=== PATIENT | male | born 1980 | race Caucasian/White ===

== ENCOUNTER 2017-05-19 13:33 | Emergency (ER) | payer BC ==
[2017-05-19 13:57] VITALS: BP 120/64
--- NOTE | 2017-05-19 14:16 | UC ---
Respiratory Complaint HPI - HPI Summary HPI Summary: 36M presents with cough for 3 weeks. He denies any SOB. He admits to some wheezing that started today. He admits to sinus congestion. He denies any fever, ear pain, or abdominal pain. He denies any n/v/d. He does not smoke and he does not have any medical problems. He took some cough medication without relief. the cough is mostly dry but occasionally is productive. His daughter is sick with similar symptoms. - History of Current Complaint Chief Complaint: UCRespiratory Stated Complaint: COUGH, RUNNING NOSE Time Seen by Provider: 05/19/17 14:06 - Allergies/Home Medications Allergies/Adverse Reactions: Allergies Allergy/AdvReac Type Severity Reaction Status Date / Time No Known Allergies Allergy Verified 05/19/17 13:57 PMH/Surg Hx/FS Hx/Imm Hx Endocrine History: Other Other Endocrine History: no DM Respiratory History: Other Other Respiratory History: no asthma - Surgical History Surgical History: None - Family History Known Family History: Negative: Respiratory Disease - Social History Alcohol Use: Occasionally Substance Use Type: None Smoking Status (MU): Never Smoked Tobacco Have You Smoked in the Last Year: No - Immunization History Most Recent Influenza Vaccination: unknown Review of Systems Constitutional: Negative Respiratory: Cough All Other Systems Reviewed And Are Negative: Yes Physical Exam Triage Information Reviewed: Yes Appearance: Well-Appearing Vital Signs: Initial Vital Signs Temp 97.8 F 05/19/17 13:53 Pulse 78 05/19/17 13:53 Resp 16 05/19/17 13:53 BP 120/64 05/19/17 13:53 Pulse Ox 100 05/19/17 13:53 Vital Signs Reviewed: Yes Eyes: Positive: Conjunctiva Clear ENT: Positive: Normal ENT inspection, Pharynx normal, Nasal drainage, TMs normal Neck: Positive: Supple, Nontender, No Lymphadenopathy Respiratory: Positive: Lungs clear, Normal breath sounds, Other: - neg egophony Cardiovascular: Positive: RRR Abdomen Description: Positive: Nontender, Soft Bowel Sounds: Positive: Present Musculoskeletal Exam: Normal Neurological Exam: Normal Psychological Exam: Normal Skin Exam: Normal UC Diagnostic Evaluation - Laboratory O2 Sat by Pulse Oximetry: 100 Respiratory Course/Dx - Course Course Of Treatment: 36M presents with cough for 3 weeks. He denies any SOB. He admits to some wheezing that started today. He admits to sinus congestion. He denies any fever, ear pain, or abdominal pain. He denies any n/v/d. He does not smoke and he does not have any medical problems. He took some cough medication without relief. the cough is mostly dry but occasionally is productive. - Differential Dx/Diagnosis Differential Diagnosis/HQI/PQRI: Bronchitis, Influenza, Lower Resp Infection Provider Diagnoses: bronchitis Discharge - Discharge Plan Condition: Good Disposition: HOME Prescriptions: Albuterol HFA INHALER* [Ventolin HFA Inhaler*] 1 puff INH Q6H PRN #1 mdi PRN Reason: Cough Benzonatate CAP* [Tessalon 100 MG CAP*] 100 mg PO TID PRN #15 cap PRN Reason: Cough Patient Education Materials: Acute Bronchitis (ED) Referrals: Hector Maddox MD [Primary Care Provider] - Additional Instructions: Use Tessalon three times a day for cough Use inhaler one puff every 4-6 hours for cough as needed Use humidifier or place warm bowls of water around the room for cough Take Tylenol and ibuprofen for pain/fever every 6 hours Return to ED if develop any new or worsening symptoms
== END 2017-05-19 14:20 | disposition home or self-care (01) ==
LOC: UCEAST 13:33
DX: J40 Bronchitis, not specified as acute or chronic (principal)
CPT/HCPCS: 99212; G0463

== ENCOUNTER 2017-05-24 12:28 | Emergency (ER) | payer BC ==
[2017-05-24 12:35] VITALS: BP 131/68
--- NOTE | 2017-05-24 14:22 | UC ---
Throat Pain/Nasal Jovani HPI - HPI Summary HPI Summary: NASAL CONGESTION, COUGH, CHEST CONGESTION FOR 3 WEEKS. NO FEVER. NO WHEEZING. NO SOB. - History of Current Complaint Chief Complaint: UCRespiratory Stated Complaint: URI Time Seen by Provider: 05/24/17 13:11 Hx Obtained From: Patient Onset/Duration: Gradual Onset, Lasting Weeks Severity: Mild Pain Intensity: 0 Pain Scale Used: 0-10 Numeric Cough: Nonproductive Associated Signs & Symptoms: Positive: Hoarseness, Sinus Discomfort, Nasal Discharge - Epiglottits Risk Factors Epiglottis Risk Factors: Negative - Allergies/Home Medications Allergies/Adverse Reactions: Allergies Allergy/AdvReac Type Severity Reaction Status Date / Time No Known Allergies Allergy Verified 05/24/17 12:34 PMH/Surg Hx/FS Hx/Imm Hx Previously Healthy: Yes - Surgical History Surgical History: None - Family History Known Family History: Negative: Respiratory Disease - Social History Occupation: Employed Full-time Lives: With Family Alcohol Use: Occasionally Substance Use Type: None Smoking Status (MU): Never Smoked Tobacco Have You Smoked in the Last Year: No - Immunization History Most Recent Influenza Vaccination: unknown Review of Systems Constitutional: Negative Skin: Negative Eyes: Negative ENT: Nasal Discharge, Sinus Congestion, Sinus Pain/Tenderness Respiratory: Cough Cardiovascular: Negative Gastrointestinal: Negative Genitourinary: Negative Motor: Negative Neurovascular: Negative Musculoskeletal: Negative Neurological: Negative Psychological: Negative Is Patient Immunocompromised?: No All Other Systems Reviewed And Are Negative: Yes Physical Exam Triage Information Reviewed: Yes Appearance: Well-Appearing, No Pain Distress, Well-Nourished Vital Signs: Initial Vital Signs Temp 97.4 F 05/24/17 12:30 Pulse 90 05/24/17 12:30 Resp 16 05/24/17 12:30 BP 131/68 05/24/17 12:30 Pulse Ox 98 05/24/17 12:30 Vital Signs Reviewed: Yes Eye Exam: Normal ENT Exam: Normal ENT: Positive: Nasal congestion, Nasal drainage, TM bulging, TM dull Dental Exam: Normal Neck exam: Normal Neck: Positive: Supple, Nontender, No Lymphadenopathy Respiratory Exam: Other - COUGH Respiratory: Positive: Chest non-tender, Lungs clear, Normal breath sounds, No respiratory distress, No accessory muscle use Cardiovascular Exam: Normal Cardiovascular: Positive: RRR, No Murmur, Pulses Normal, Brisk Capillary Refill Abdominal Exam: Normal Abdomen Description: Positive: Nontender, No Organomegaly, Soft Musculoskeletal Exam: Normal Musculoskeletal: Positive: Strength Intact, ROM Intact Neurological Exam: Normal Psychological Exam: Normal Skin Exam: Normal Throat Pain/Nasal Course/Dx - Differential Dx/Diagnosis Differential Diagnosis/HQI/PQRI: Pharyngitis, Sinusitis, Tonsillitis, URI Provider Diagnoses: SINUSITIS; BRONCHITIS Discharge - Discharge Plan Condition: Stable Disposition: HOME Prescriptions: DOXYcycline CAP(*) [DOXYcycline 100MG CAP(*)] 100 mg PO BID #20 cap Patient Education Materials: Sinusitis (ED), Acute Bronchitis (ED) Referrals: Hector Maddox MD [Primary Care Provider] -
== END 2017-05-24 13:35 | disposition home or self-care (01) ==
LOC: UCEAST 12:28
DX: J32.9 Chronic sinusitis, unspecified (principal); J40 Bronchitis, not specified as acute or chronic
CPT/HCPCS: 99212; G0463

== ENCOUNTER 2017-07-04 20:37 | Emergency (ER) | payer BC ==
[2017-07-04 20:45] VITALS: BP 142/74
--- NOTE | 2017-07-04 21:12 | RAD ---
INDICATION: Wheezing. Cough. COMPARISON: None TECHNIQUE: PA and lateral dual-energy views were obtained. FINDINGS: Bones/Soft Tissues: There are no acute bony findings. Cardiomediastinal: The cardiomediastinal silhouette is normal. Lungs: There are no infiltrates. Pleura: There are no pleural effusions. Other: None IMPRESSION: NEGATIVE EXAMINATION.
[2017-07-04] MEDS ORDERED: Amoxicillin/Clavulanate TAB* 875 MG PO ONE (21:19)
[2017-07-04] MEDS ORDERED: Azithromycin TAB* 250 MG PO ONE (21:19)
--- NOTE | 2017-07-04 21:26 | UC ---
Reji Nicole Tecjoon, scribed for Hector Brito MD on 07/04/17 at 2057 . Respiratory Complaint HPI - HPI Summary HPI Summary: This patient is a 36 year old male [place] [facility] a chief complaint of wheezing and sinus congestion since 2 months ago, worsening in the past 2 weeks. Patient states that he was dx with pneumonia at the time. Symptoms aggravated by nothing. Symptoms alleviated by nothing. The patient treated the sx with doxycycline [employer]. Patient additionally reports nonproductive cough, sinus pressure/pain, ear pressure/pain, nasal discharge with green phlegm. Patient states that he gets fatigued abnormally quickly. - History of Current Complaint Stated Complaint: COLD,COUGH Hx Obtained From: Patient Onset/Duration: Gradual Onset, Lasting Weeks - 8 weeks, Still Present, Worse Since - 2 weeks Severity Currently: Mild Pain Intensity: 0 Pain Scale Used: 0-10 Numeric Character: Cough: Nonproductive Aggravating Factors: Nothing Alleviating Factors: Nothing Associated Signs And Symptoms: Positive: Wheezing, Nasal Congestion. Negative: Fever - Allergies/Home Medications Allergies/Adverse Reactions: Allergies Allergy/AdvReac Type Severity Reaction Status Date / Time No Known Allergies Allergy Verified 07/04/17 20:42 PMH/Surg Hx/FS Hx/Imm Hx Previously Healthy: Yes Endocrine History: Other Other Endocrine History: negative: diabetes Cardiovascular History: Other Other Cardiovascular History: negative: cardiac disease, hypertension Other Respiratory History: negative: COPD Cancer History: Other Other Cancer History: iga nephropathy - Surgical History Surgical History: None - Family History Known Family History: Negative: Respiratory Disease - Social History Lives: Alone Alcohol Use: Occasionally Substance Use Type: None Smoking Status (MU): Never Smoked Tobacco Have You Smoked in the Last Year: No - Immunization History Most Recent Influenza Vaccination: unknown Review of Systems Constitutional: Negative - fever ENT: Ear Ache - pressure, Nasal Discharge - green phlegm, Sinus Congestion, Sinus Pain/Tenderness Respiratory: Cough, Other - wheezing All Other Systems Reviewed And Are Negative: Yes Physical Exam Triage Information Reviewed: Yes Vital Signs: Initial Vital Signs Temp 97.8 F 07/04/17 20:43 Pulse 88 07/04/17 20:43 Resp 17 07/04/17 20:43 BP 142/74 07/04/17 20:43 Pulse Ox 98 07/04/17 20:43 - Additional Comments General: mildly ill-appearing, no pain distress Skin: warm, color reflects adequate perfusion, dry Head: normal Eyes: EOMI, CLARICE ENT: rhinorrhea Neck: supple, nontender Respiratory: Bilateral wheezing with expiration. No respiratory distress. Cardiovascular: RRR Abdomen: soft, nontender Bowel: present Musculoskeletal: normal, strength/ROM intact Neurological: normal, sensory/motor intact, A&O x3 Psychological: affect/mood appropriate Diagnostic Evaluation - Laboratory O2 Sat by Pulse Oximetry: 98 - Radiology Xray Interpretation: No Acute Changes - CXR reveals, per radiologist, IMPRESSION : NEGATIVE HEADLIGHT Radiology Interpretation Completed By: Radiologist Respiratory Course/Dx - Course Course Of Treatment: HAD 10D OF DOXY IN APRIL. TODAY RX DUAL THERAPY; AZITHRO FOR BRONCHITIS TO COVER ANY ATYPICALS AND AUGMENTIN FOR SINUSITIS. RX PREDNISONE ALSO. - Differential Dx/Diagnosis Provider Diagnoses: BRONCHITIS WITH BRONCHOSPASM AND SINUSITIS Discharge - Discharge Plan Condition: Stable Disposition: HOME Prescriptions: Amoxicillin/Clavulanate TAB* [Augmentin TAB 875*] 875 mg PO BID #19 tab Azithromycin TAB* [Zithromax TAB (Z-ILIANA) 250 mg #6 tabs] 250 mg PO DAILY #4 tab predniSONE TAB* [Deltasone TAB*] 40 mg PO DAILY #10 tab Patient Education Materials: Sinusitis (ED), Acute Bronchitis (ED), Bronchospasm (ED) Referrals: Hector Maddox MD [Primary Care Provider] - Additional Instructions: FOLLOW UP WITH YOUR DOCTOR. GET RECHECKED FOR ANY WORSENING OF YOUR CONDITION OR QUESTIONS OR CONCERNS. The documentation as recorded by the Reji baker Tecjoon accurately reflects the service I personally performed and the decisions made by me, Hector Brito MD.
== END 2017-07-04 21:25 | disposition home or self-care (01) ==
LOC: UCEAST 20:37
DX: J40 Bronchitis, not specified as acute or chronic (principal); J98.01 Acute bronchospasm; J32.9 Chronic sinusitis, unspecified
CPT/HCPCS: 71046; 99212; A9270-GY; G0463

== ENCOUNTER 2017-08-09 11:22 | Emergency (ER) | payer BC ==
[2017-08-09 11:38] VITALS: BP 127/77
--- NOTE | 2017-08-09 12:03 | UC ---
Throat Pain/Nasal Jovani HPI - HPI Summary HPI Summary: Patient presents with complaints of sinus pain, pressure and thick green nasal discharge. He states he has sinus headache behind his eyes, he has been taking Tylenol cold and sinus with no relief. She states his daughter has been ill with viral illnesses and he feels she is bringing home to him. He denies any double vision, blurred vision, fever, chills, neck, chest or abdomen pain, nausea, vomiting or diarrhea. - History of Current Complaint Chief Complaint: UCRespiratory Stated Complaint: SINUS CONGESTION Time Seen by Provider: 08/09/17 11:43 Hx Obtained From: Patient Onset/Duration: Gradual Onset, Lasting Days Severity: Moderate Pain Intensity: 4 Cough: Nonproductive Associated Signs & Symptoms: Positive: Sinus Discomfort, Nasal Discharge - Epiglottits Risk Factors Epiglottis Risk Factors: Negative - Allergies/Home Medications Allergies/Adverse Reactions: Allergies Allergy/AdvReac Type Severity Reaction Status Date / Time No Known Allergies Allergy Verified 08/09/17 11:38 PMH/Surg Hx/FS Hx/Imm Hx Previously Healthy: No - three respiratory illnesses since 05/09. - Surgical History Surgical History: None - Family History Known Family History: Negative: Respiratory Disease - Social History Occupation: Employed Full-time Lives: With Family Alcohol Use: Occasionally Substance Use Type: None Smoking Status (MU): Never Smoked Tobacco Have You Smoked in the Last Year: No - Immunization History Most Recent Influenza Vaccination: unknown Review of Systems Constitutional: Fatigue Skin: Negative Eyes: Negative ENT: Nasal Discharge, Sinus Congestion, Sinus Pain/Tenderness Respiratory: Negative Cardiovascular: Negative Gastrointestinal: Negative Genitourinary: Negative Motor: Negative Neurovascular: Negative Musculoskeletal: Negative Neurological: Negative Psychological: Negative Is Patient Immunocompromised?: No All Other Systems Reviewed And Are Negative: Yes Physical Exam Triage Information Reviewed: Yes Appearance: Well-Appearing Vital Signs: Initial Vital Signs Temp 98.6 F 08/09/17 11:34 Pulse 70 08/09/17 11:34 Resp 18 08/09/17 11:34 BP 127/77 08/09/17 11:34 Pulse Ox 99 08/09/17 11:34 Vital Signs Reviewed: Yes Eye Exam: Normal ENT: Positive: Pharyngeal erythema, Nasal congestion, Nasal drainage, Sinus tenderness, Uvula midline Neck exam: Normal Respiratory Exam: Normal Skin Exam: Normal Throat Pain/Nasal Course/Dx - Course Course Of Treatment: Patient presents with three respiratory illnesses since . He presents today with clincial signs of sinus infection, and will be treated with Baixin 500 mg by mouth twice daily for 14 days given the fact that this is reoccurant. I also recommend he follow up with ENT due to the frequency of his illness. He had normal vital signs, nontoxic appearace and I feel appropriate for outpatient treatment. He verbalized understanding of and was in agreeement with the discharge plan. - Differential Dx/Diagnosis Differential Diagnosis/HQI/PQRI: Sinusitis Provider Diagnoses: sinusitis Discharge - Discharge Plan Condition: Stable Disposition: HOME Prescriptions: Clarithromycin TAB* [Biaxin 500 MG TAB*] 500 mg PO BID #28 tab Patient Education Materials: Sinusitis (ED) Referrals: William Hobbs MD [Medical Doctor] - Hector Maddox MD [Primary Care Provider] - Additional Instructions: You should follow up with the ENT if you continue to have sinus symptoms.
== END 2017-08-09 12:04 | disposition home or self-care (01) ==
LOC: UCEAST 11:22
DX: J32.9 Chronic sinusitis, unspecified (principal)
CPT/HCPCS: 99212; G0463

== ENCOUNTER 2018-03-21 13:17 | Emergency (ER) | payer BC ==
[2018-03-21 13:35] VITALS: BP 131/73
--- NOTE | 2018-03-21 13:46 | UC ---
Skin Complaint HPI - HPI Summary HPI Summary: 37 year old male presents with 1 week history of prurtic rash to bilateral forearms and legs. 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 Denies fever, chills, difficulty breathing, swelling of lips, tongue, or throat, changes in medications, foods, soaps, detergents, perfumes, or deodorants. - History of Current Complaint Chief Complaint: UCRash Time Seen by Provider: 03/21/18 13:36 Stated Complaint: ITCHY BUMPS ON ARMS Hx Obtained From: Patient Onset/Duration: Gradual Onset, Lasting Weeks - 1 Timing: Constant Pain Intensity: 0 Location: Diffuse - bilateral forearms and legs Character: Pruritus, Redness, Raised Aggravating Factor(s): Nothing Alleviating Factor(s): Nothing - Allergy/Home Medications Allergies/Adverse Reactions: Allergies Allergy/AdvReac Type Severity Reaction Status Date / Time No Known Allergies Allergy Verified 03/21/18 13:35 Review of Systems Constitutional: Negative Skin: Rash - See HPI ENT: Negative Respiratory: Negative Cardiovascular: Negative Is Patient Immunocompromised?: No All Other Systems Reviewed And Are Negative: Yes PMH/Surg Hx/FS Hx/Imm Hx Previously Healthy: Yes - Denies significant PMH - Surgical History Surgical History: None - Family History Family History: Noncontributory - Social History Occupation: Employed Full-time Lives: With Family Alcohol Use: Occasionally Substance Use Type: None Smoking Status (MU): Never Smoked Tobacco Have You Smoked in the Last Year: No - Immunization History Most Recent Influenza Vaccination: unknown Physical Exam Triage Information Reviewed: Yes Appearance: Well-Appearing, No Pain Distress, Well-Nourished Vital Signs: Initial Vital Signs Temp 98.3 F 03/21/18 13:32 Pulse 93 03/21/18 13:32 Resp 18 03/21/18 13:32 BP 131/73 03/21/18 13:32 Pulse Ox 98 03/21/18 13:32 ENT: Positive: Normal ENT inspection Neck: Positive: Supple, Nontender, No Lymphadenopathy Respiratory: Positive: Lungs clear, Normal breath sounds, No respiratory distress Cardiovascular: Positive: RRR, No Murmur Neurological: Positive: Alert Skin: Positive: rashes - multiple discrete pruritic papular lesions to bilateral forearms, upper and lower legs. Few with excoriation and crusting. There is clusters group noted to left forearm. Course/Dx - Course Course Of Treatment: 37 year old male with 1 week history of pruritic rash to bilateral arms and legs with significant exposure to potential environmental irritants. Rash is consistent with a contact dermatitis. Will treat with topical steroid ointment and OTC diphenhydramine. He is to follow up with PCP in 2 weeks if no improvement in symptoms. - Differential Diagnoses - Skin Complaint Differential Diagnoses: Allergic Reaction, Contact Dermatitis, Poison Sparkle, Poison [place] - Diagnoses Provider Diagnoses: contact dermatitis, elevated blood pressure reading Discharge - Sign-Out/Discharge Documenting (check all that apply): Patient Departure All imaging exams completed and their final reports reviewed: No Studies - Discharge Plan Condition: Stable Disposition: HOME Prescriptions: Clobetasol 0.05% OINT* 1 applic TOPICAL BID 14 Days #1 tube Patient Education Materials: Contact Dermatitis (ED) Referrals: Hector Maddox MD [Primary Care Provider] - 2 Weeks (If no improvement in symptoms.) Additional Instructions: Your rash appears to be a contact dermatitis. This may be from poison sparkle or poison oak considering your potential for exposure. Try to avoid scratching as this may cause the rash to spread to other areas. Use clobetasol ointment twice a day to affected areas to help with itching and inflammation. Do not use for more than 2 weeks. You may use over the counter diphenhydramine (Benadryl) according to directions as needed for itching. This may cause drowsiness. Follow up with your primary care provider in 2 weeks if no improvement in symptoms. Sooner if rash continues to spread. Your blood pressure was slightly elevated in the clinic today. I would recommend that you follow up with your primary care provider to have this rechecked. - Billing Disposition and Condition Condition: STABLE Disposition: Home
== END 2018-03-21 14:21 | disposition home or self-care (01) ==
LOC: UCEAST 13:17
DX: L25.9 Unspecified contact dermatitis, unspecified cause (principal); R03.0 Elevated blood-pressure reading, without diagnosis of hypertension
CPT/HCPCS: 99212; G0463

== ENCOUNTER 2018-11-30 07:06 | Emergency (ER) | payer BC ==
[2018-11-30 07:16] VITALS: BP 129/82
--- NOTE | 2018-11-30 07:24 | UC ---
Shoulder Pain HPI - HPI Summary HPI Summary: The patient is a 38-year-old male who was playing kickball last night. He tried to avoid landing on someone and jumped and rolled. He landed awkwardly on his left shoulder. He has left shoulder pain. He denies any prior history of his left shoulder. He is right handed. He has decreased range of motion. Hurts to lay on his left shoulder. - History of Current Complaint Chief Complaint: UCUpperExtremity Stated Complaint: SHOULDER INJURY Time Seen by Provider: 11/30/18 07:19 Hx Obtained From: Patient Onset/Duration: Sudden Onset, Lasting Hours Timing: Constant Severity Initially: Moderate Severity Currently: Moderate Pain Intensity: 5 Pain Scale Used: 0-10 Numeric Character: Aching, Throbbing, Spasmodic Aggravating Factor(s): Movement, Lifting, Internal Rotation, External Rotation, Abduction Alleviating Factor(s): Rest Associated Signs And Symptoms: Negative: Swelling, Redness, Bruising, Fever, Weakness, Numbness/Tingling Related History: Dominant Hand Right Torso: 1 - tender 2 - tender - Allergies/Home Medications Allergies/Adverse Reactions: Allergies Allergy/AdvReac Type Severity Reaction Status Date / Time NSAIDS (Non-Steroidal AdvReac unable to Verified 11/30/18 07:16 Anti-Inflamma have d/t IGA nephropathy Home Medications: Home Medications Acetaminophen [Tylenol] 1,000 mg PO BID PRN 11/30/18 [History Confirmed 11/30/18 ] PMH/Surg Hx/FS Hx/Imm Hx - Additional Past Medical History Additional PMH: IgA nephropathy Previously Healthy: Yes - Surgical History Surgical History: None - Family History Known Family History: Positive: Hypertension Negative: Respiratory Disease Family History: Noncontributory - Social History Alcohol Use: Rare Substance Use Type: None Smoking Status (MU): Never Smoked Tobacco Have You Smoked in the Last Year: No - Immunization History Most Recent Influenza Vaccination: unknown Review of Systems All Other Systems Reviewed And Are Negative: Yes Constitutional: Positive: Negative Skin: Positive: Negative Eyes: Positive: Negative ENT: Positive: Negative Respiratory: Positive: Negative Cardiovascular: Positive: Negative Gastrointestinal: Positive: Negative Genitourinary: Positive: Negative Motor: Positive: Negative Musculoskeletal: Positive: Arthralgia - Left shoulder, Decreased ROM - left shoulder Neurological: Positive: Negative Psychological: Positive: Negative Physical Exam Triage Information Reviewed: Yes Appearance: Well-Appearing, No Pain Distress, Well-Nourished Vital Signs: Initial Vital Signs Temp 97.1 F 11/30/18 07:13 Pulse 74 11/30/18 07:13 Resp 16 11/30/18 07:13 BP 129/82 11/30/18 07:13 Pulse Ox 97 11/30/18 07:13 Vital Signs Reviewed: Yes Eyes: Positive: Conjunctiva Clear ENT: Positive: Hearing grossly normal. Negative: Nasal congestion, Nasal drainage, Muffled voice, Hoarse voice Dental Exam: Normal Neck: Positive: Supple, Nontender, No Lymphadenopathy Respiratory: Positive: Lungs clear, Normal breath sounds, No respiratory distress, No accessory muscle use Cardiovascular: Positive: RRR, No Murmur Musculoskeletal: Positive: ROM Limited @ - left shoulder, Other: - tender left ACjoint and distal clavicle Neurological: Positive: Alert Psychological Exam: Normal Skin Exam: Normal Diagnostics - Radiology No standard instances Radiology Interpretation Completed By: Radiologist Summary of Radiographic Findings: negative Shoulder Course/Dx - Differential Dx/Diagnosis Provider Diagnosis: Separation of left acromioclavicular joint, Strain of left trapezius muscle Discharge - Sign-Out/Discharge Documenting (check all that apply): Patient Departure All imaging exams completed and their final reports reviewed: Yes - Discharge Plan Condition: Stable Disposition: HOME Patient Education Materials: Acromioclavicular Separation (ED), Shoulder Sprain (ED) Referrals: Hector Maddox MD [Primary Care Provider] - 1 Week Additional Instructions: sling as needed ice shoulder at least twice daily your XR was normal I suspect a mild AC separation and sprain If not improving you may need further imaging of shoulder so be sure to follow up with you MD - Billing Disposition and Condition Condition: STABLE Disposition: Home
== END 2018-11-30 08:10 | disposition home or self-care (01) ==
LOC: UCEAST 07:06
DX: S43.102A Unspecified dislocation of left acromioclavicular joint, initial encounter (principal); S46.812A Strain of other muscles, fascia and tendons at shoulder and upper arm level, left arm, initial encounter; W19.XXXA Unspecified fall, initial encounter; Y93.6A Activity, physical games generally associated with school recess, summer camp and children; Y92.9 Unspecified place or not applicable
CPT/HCPCS: 99212; G0463